=== PATIENT | male | born 1940 | race Caucasian/White ===

== ENCOUNTER 2017-09-06 08:00 | Outpatient (CLI) | payer OTHER ==
[2017-09-06] MEDS ORDERED: SYNTHROID112 MCG PO (10:01)
[2017-09-06] MEDS ORDERED: NEURONTIN300 MG PO (10:01)
[2017-09-06] MEDS ORDERED: TAMS0.4C PO (10:02)
== END 2017-09-06 15:34 | disposition home or self-care (01) ==
LOC: EDBD → RAD 08:00 → LAB 08:00 → CIR.AMB 08:42 → LAB 15:34 → CIR.AMB 15:37 → EDSTATUS 18:17 → LAB 11-09 14:11
DX: M23.261 Derangement of other lateral meniscus due to old tear or injury, right knee (principal); Z01.810 Encounter for preprocedural cardiovascular examination